=== PATIENT | female | born 1955 | race Caucasian/White ===

== ENCOUNTER 2024-10-16 16:55 | Emergency (ER) | payer MEDICARE, OTHER, SELFPAY ==
[2024-10-16 17:11] VITALS: BP 136/50; PULSE 74; RESP 20; TEMP 37.1; O2SAT 93
--- NOTE | 2024-10-16 17:36 | ED.URI ---
HPI - URI/Sore Throat General Chief Complaint: Upper Respiratory Infection Stated Complaint: congested Time Seen by Provider: 10/16/24 17:39 Source: patient, RN notes reviewed and old records reviewed Mode of arrival: ambulatory Limitations: no limitations History of Present Illness HPI Narrative: patient presents with complaints cough and low oxygen saturation. Patient has restrictive lung disease, uses oxygen at baseline. Reports saturation immediately increased when she applied her oxygen. Has had a cough, admittedly has not been using nebulizer treatments. Positive exposure to COVID earlier this week Related Data Home Medications ?Medication ?Instructions ?Recorded ?Confirmed ?Last Taken ?Type aspirin 81 mg tablet,delayed 81 mg PO DAILY 10/16/24 Unknown History release (Adult Aspirin Regimen) atorvastatin 10 mg tablet mg 10/16/24 Unknown History cholecalciferol (vitamin D3) 25 25 mcg PO DAILY 10/16/24 Unknown History mcg (1,000 unit) capsule diltiazem HCl 300 mg mg PO 10/16/24 Unknown History capsule,extended release 24 hr furosemide 20 mg tablet 20 mg PO DAILY 10/16/24 Unknown History mirtazapine 15 mg tablet mg 10/16/24 Unknown History sertraline 100 mg tablet mg 10/16/24 Unknown History terbinafine HCl 250 mg tablet mg 10/16/24 Unknown History vitamin C 30 mg-zinc citrate 1.1 tablet PO 10/16/24 Unknown History mg-elderberry 25 mg chewable tablet (Sambucus Elderberry) Allergies Allergy/AdvReac Type Severity Reaction Status Date / Time No Known Allergies Allergy Mild Verified 10/16/24 17:14 Review of Systems Review of Systems: All systems reviewed & are unremarkable except as noted in HPI and below Constitutional: Constitutional: Reports no additional constitutional complaints ENT: Reports system reviewed and no additional complaints, except as documented Cardiovascular: Cardiovascular: Reports no additional cardiovascular complaints Respiratory: Respiratory: Reports no additional respiratory complaints, Reports chest congestion, Reports cough, Reports dyspnea on exertion and Reports wheezing Gastrointestinal: Gastrointestinal: Reports no additional gastrointestinal complaints Exam Const: General: cooperative, no acute distress, alert and awake Orientation/consciousness: oriented to person, oriented to place and oriented to time HENMT: Head: normal to inspection Resp: Effort & Inspection: normal respiratory effort and able to speak in complete sentences Auscultation: clear to auscultation bilaterally, no crackles, no rales, no rhonchi, wheezes scattered wheezes and diminished lung sounds Cardio: Palpation: normal PMI Rate: regular rate Rhythm: regular rhythm Heart sounds: S1 normal heart sound present and S2 normal heart sound present Neuro: General: oriented to person, oriented to place and oriented to time Cranial nerves: Yes CN's II-XII intact bilaterally Psych: Appearance: grossly normal Thought process: Normal thought process present Insight: Good insight present (Psych) Judgement: Good judgement present (Psych) Course Course Level of Care: Express Care Visit Vital Signs Vital signs: Vital Signs Temperature 98.7 F 10/16/24 17:11 Pulse Rate 74 10/16/24 17:11 Respiratory Rate 20 10/16/24 17:11 Blood Pressure 136/50 L 10/16/24 17:11 Pulse Oximetry 93 10/16/24 17:11 Oxygen Delivery Room Air 10/16/24 17:11 Temperature 98.7 F 10/16/24 17:11 Pulse Rate 74 10/16/24 17:11 Respiratory Rate 20 10/16/24 17:11 Blood Pressure 136/50 L 10/16/24 17:11 Pulse Oximetry 93 10/16/24 17:11 Oxygen Delivery Room Air 10/16/24 17:11 MDM - URI/Sore Throat MDM Narrative Medical decision making narrative: patient with home oxygen use, multiple respiratory comorbidities. COVID positive, low oxygen saturation at home today without home O2. Bumped back up with use of oxygen. Given pry the lids of community-acquired pneumonia and patient's comorbid conditions will go ahead and cover with azithromycin along with as prednisone. Strict emergency department precautions discussed with patient and her . Discharge instructions reviewed with patient, as well as provided in writing per nursing staff. The instructions also include specific and strict return/GO TO THE ER as well as f/u information. All questions have been answered, and the patient deny any further questions with discharge and discharge plan. Some parts of this dictation were generated by voice recognition software and may contain typographical and/or grammatical inaccuracies. Differential Diagnosis Differential diagnosis: Likely upper respiratory infection, otitis media, viral infection, bronchitis, influenza and pharyngitis Medical Records Attestation: I reviewed the patient's medical records. Lab Data Attestation: I reviewed the patient's lab results. Discharge Plan Discharge Clinical Impression: COVID-19 Patient Disposition: Home, Self-Care Condition: Stable Instructions: Antibiotic Form, How to Recover from COVID-19 at Home (ED) Additional Instructions: take medications as prescribed. Follow with primary care provider. Emergency department for new or worse Patient Language: Luxembourgish Prescriptions: New azithromycin 250 mg tablet See Rx Instructions .ROUTE .COMPLEX Qty: 6 0RF Rx Instructions: For 250 mg dose pack: take 500 mg today (day 1), then 250 mg for 4 days (days 2-5) prednisone 50 mg tablet 50 mg PO DAILY Qty: 5 0RF albuterol sulfate [Ventolin HFA] 90 mcg/actuation HFA aerosol inhaler 2 puff inhalation QID PRN (Reason: shortness of breath or wheezing) Qty: 8.5 0RF No Action atorvastatin 10 mg tablet sertraline 100 mg tablet diltiazem HCl 300 mg capsule,extended release 24hr PO mirtazapine 15 mg tablet Sambucus Elderberry 30-1.1-25 mg tablet,chewable PO aspirin [Adult Aspirin Regimen] 81 mg tablet,delayed release (DR/EC) 81 mg PO DAILY terbinafine HCl 250 mg tablet furosemide 20 mg tablet 20 mg PO DAILY cholecalciferol (vitamin D3) 25 mcg (1,000 unit) capsule 25 mcg PO DAILY Follow-up/Referrals: Gerson,Benito Au MD [Primary Care Provider] - 3 Days Time of Disposition: 17:49
[2024-10-16 17:39] LABS: EDCOVIDSCREEN Positive (Negative); EDINFLUASCREEN Negative (Negative); EDINFLUBSCREEN Negative (Negative)
== END 2024-10-16 18:00 | disposition home or self-care (01) ==
PROVIDERS: Emergency Provider Nurse Practitioner Family; PCP Family Medicine
DX: U07.1 COVID-19 (principal)
CPT/HCPCS: 87426; 87804; 99212; G0463